=== PATIENT | female | born 1990 | race Two or more races ===

== ENCOUNTER 2019-09-29 23:45 | Emergency (ER) | payer OTHER, MEDICAID ==
[~2019-09-29] VITALS: Ht 170.2 cm; Wt 65.8 kg
[2019-09-30 00:36] LABS: Urine Bacteria FEW /hpf (None Seen); Urine Blood Negative /uL (Negative); Urine Specific Gravity 1.005 (1.001-1.035); Urine WBC 7 /hpf (0 - 5)
== END 2019-09-30 00:43 | disposition left against medical advice (07) ==
LOC: ER 23:47
DX: R51 Headache (principal); R20.2 Paresthesia of skin; Z53.21 Procedure and treatment not carried out due to patient leaving prior to being seen by health care provider
CPT/HCPCS: 81001; 81025